=== PATIENT | male | born 1950 | race African-American/Black ===

== ENCOUNTER 2019-06-20 06:23 | Inpatient (IN) | payer OTHER ==
[~2019-06-20] VITALS: Ht 165.1 cm; Wt 48.6 kg
[2019-06-20] VITALS (38 sets, daily range): BP systolic 100–152; BP diastolic 70–94
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
[2019-06-20] MEDS ORDERED: GARLIC CHOLEST300 MG PO (06:36)
[2019-06-20 07:15] LABS: HEMATOCRIT 46.6 % (42.0-52.0); HEMOGLOBIN 15.2 gm/dL (14.0-18.0); MCH 30.7 pg (26.0-34.0); MCHC 32.6 g/dL (28.0-37.0); MCV 94.1 fL (80.0-100.0); RBC 4.95 mil/uL (4.50-6.00); RDW 15.8 % (10.5-14.5); WBC 8.8 thou/uL (4.0-11.0)
--- NOTE | 2019-06-20 07:15 | NUR ---
THERE IS NO NEED FOR A 1:1 SITTER AT THIS TIME FOR THE PT. THE RESTRAINTS ARE IN PLACE DUE TO THE PT PULLING AT THE IV.
[2019-06-20 07:34] LABS: BE(vivo) -4.9 mmol/L (-2 to +3); HCO3 17.7 mmol/L (22.0-26.0); PCO2 27.3 mmHg (35.0-45.0)
[2019-06-20 07:34] LABS: CALCIUM 9.1 mg/dL (8.5-10.1); CREATININE 3.9 mg/dL (0.7-1.3); POTASSIUM 4.1 mmol/L (3.5-5.1)
[2019-06-20 07:38] LABS: TSH 1.962 uIU/mL (0.358-3.740)
[2019-06-20 07:39] LABS: PHOSPHORUS 5.2 mg/dL (2.5-4.9); TOTAL BILIRUBIN 3.3 mg/dL (<0.1-1.0); TROPONIN-I 0.22 ng/mL (<0.06)
--- NOTE | 2019-06-20 09:39 | NUR ---
PER PT SON'S PHONE NUMBER: [phone]; JANETH FLYNN
--- NOTE | 2019-06-20 10:30 | NUR ---
WAS ABLE TO SPEAK WITH GEE, SON: [phone]
--- NOTE | 2019-06-20 12:51 | NUR ---
PATIENT ARRIVED TO ICU AT 1219. PATIENT TRANSFERRED INTO ICU BED AND SETTLED. PATIENT ALERT AND ORIENTED BUT CONFUSED. PATIENT RESTING AT THIS TIME. CARDIZEM GTT RECIEVED FROM PHARMACY AND STARTED AT 10 THEN INCREASED TO 15.
--- NOTE | 2019-06-20 15:45 | NUR ---
1520- Patient went to CT Scan with his RN from POD1. Covid was negative. He was then transfered to POD 2 because of the negative test. He was settled into the bed. 1530- Attempt was made at placing a catheter, 14f coude was used this time as it was reported that there had been several attempts. Small amount of bleeding was noted. Patient expressed the pain was too much for him to tolerate. 1545- Patient was able to void 150ml on his own, with ultra sound, post void, residual noted to be 50ml. 1604- All was noted to primary physician.
--- NOTE | 2019-06-20 16:25 | NUR ---
8701- nurse talked with patients spokes loss control representative and updated him on the phone. Nurse explained that visitors can not come at this time, he expressed he understood. Nurse explained that he may call when he wants to check up on patient. Nurse explained plan of care to him. He denied further needs at this time.
[2019-06-21] VITALS (38 sets, daily range): BP systolic 101–133; BP diastolic 68–86
[2019-06-21 05:58] LABS: HEMATOCRIT 42.9 % (42.0-52.0); HEMOGLOBIN 13.9 gm/dL (14.0-18.0); MCH 30.8 pg (26.0-34.0); MCHC 32.4 g/dL (28.0-37.0); MCV 94.8 fL (80.0-100.0); RBC 4.53 mil/uL (4.50-6.00); RDW 16.2 % (10.5-14.5); WBC 9.8 thou/uL (4.0-11.0)
[2019-06-21 06:21] LABS: ALBUMIN 3.5 g/dL (3.4-5.0); POTASSIUM 4.1 mmol/L (3.5-5.1); TOTAL BILIRUBIN 2.6 mg/dL (<0.1-1.0); TOTAL PROTEIN 7.3 g/dL (6.4-8.2); TROPONIN-I 0.21 ng/mL (<0.06)
[2019-06-21 06:24] LABS: CREATININE 2.9 mg/dL (0.7-1.3)
--- NOTE | 2019-06-21 08:58 | EKG ---
[facility] [place] [address] ELECTROCARDIOGRAM REPORT Name: WAYNE MARTINES Room #: 244-P ADM IN M.R.#: [id number] Admission: 06/20/19 Attend Phys: Marie Man MD Discharge: Date of : 46 Report #: [id number] THIS REPORT FOR: cc: FAM - Family physician unknown FAM - Family physician unknown Raulito Julian MD ~ THIS REPORT FOR: //name// [facility] ED Test Date: 2019-06-20 Test Time: 06:39:49 Pat Name: WAYNE MARTINES Department: Room: [facility] Gender: M Transportation Planning Engineer: CARROLL : 1950 Requested By: Yana Feliz Order Number: [id number] MD: Raulito Julian Measurements Intervals [place] Rate: 136 P: [place]: QRS: 13 QRSD: 91 T: QT: 351 QTc: 529 Interpretive Statements Atrial fibrillation Ventricular premature complex Probable left ventricular hypertrophy Nonspecific T abnormalities, lateral leads Prolonged QT interval No previous ECG available for comparison Electronically Signed On 06-21-2019 8:56:33 CDT by Raulito Julian [email or web address] <ELECTRONICALLY SIGNED> By: Raulito Julian MD 06/21/19 0856 0639 0639 Raulito Julian MD /ROLLY
--- NOTE | 2019-06-21 13:24 | 2DMMODE ---
[facility] [place] [address] 2 D/M-MODE ECHOCARDIOGRAM Name: WAYNE MARTINES Room #: 244-P ADM IN M.R.#: [id number] Admission: 06/20/19 Attend Phys: Marie Man MD Discharge: Date of : 46 Report #: [id number] THIS REPORT FOR: cc: FAM - Family physician unknown FAM - Family physician unknown Ciro Doss MD [facility] ~ APPROVED REPORT Study performed: 06/21/2019 11:46:47 EXAM: Comprehensive 2D, Doppler, and color-flow Echocardiogram Patient Location: ICU Room #: 244 Status: routine BSA: 1.53 HR: 86 bpm BP: 111/86 mmHg Rhythm: Atrial Fibrillation Other Information Study Quality: Good Indications Atrial Fibrillation 2D Dimensions RVDd: 34.81 mm IVSd: 10.07 (7-11mm) LVOT Diam: 18.56 (18-24mm) LVDd: 57.80 mm PWd: 9.92 (7-11mm) Ascending Ao: 26.90 (22-36mm) LVDs: 53.42 (25-40mm) Aortic Root: 30.60 mm IVC: 26.00 mm Volumes Left Atrial Volume (Systole) Single Plane 4CH: 81.98 mL Single Plane 2CH: 120.86 mL LA ESV Index: 69.00 mL/m2 Aortic Valve AoV Peak Brian.: 1.11 m/s AO Peak Gr.: 4.89 mmHg LVOT Max P.66 mmHg LVOT Max V: 0.96 m/s SERENE Vmax: 2.34 cm2 [facility] [address] [place] [address] 2 D/M-MODE ECHOCARDIOGRAM Name: WAYNE MARTINES JR Room #: 244-P ADM IN .R.#: [id number] Admission: 06/20/19 Attend Phys: Drew Park Discharge: Date of : 46 Report #: [id number] Pulmonary Valve PV Peak Brian.: 0.88 m/s PV Peak Gr.: 3.10 mmHg Tricuspid Valve TR Peak Brian.: 2.93 m/s TR Peak Gr.: 34.28 mmHg PA Pressure: 44.00 mmHg Left Ventricle Left ventricle is dilated. There is severe global hypokinesis of the left ventricle. There is normal left ventricular wall thickness. Left ventricular ejection fraction is severely decreased. Large protruding, mobile apical thrombus LVEF is 20%. This study is not technically sufficient to allow evaluation of the LV diastolic function due to atrial fibrillation. Right Ventricle The right ventricle is normal size. Right ventricle is hypokinetic. Atria Left atrium is dilated. Right atrium is dilated. Aortic Valve The aortic valve is sclerotic, trileaflet. Mild aortic regurgitation. There is no aortic valvular stenosis. Mitral Valve The mitral valve is normal in structure. Mild mitral regurgitation. No evidence of mitral valve stenosis. Tricuspid Valve The tricuspid valve is normal in structure. There is mild tricuspid regurgitation. Estimated PAP 45 mmHg. There is moderate pulmonary hypertension. Pulmonic Valve The pulmonary valve is normal in structure. Trace pulmonic regurgitation. Great Vessels The aortic root is normal in size. IVC is dilated and collapses <50% with inspiration. Pericardium There is no pericardial effusion. [facility] [address] [place] [address] 2 D/M-MODE ECHOCARDIOGRAM Name: WAYNE MARTINES JR Room #: 244-P [facility] IN [facility].#: [id number] Admission: 06/20/19 Attend Phys: Drew Park Discharge: Date of : 46 Report #: [id number] <Conclusion> Left ventricular ejection fraction is severely decreased. There is severe global hypokinesis of the left ventricle. LVEF is 20%. Large protruding, mobile apical LV thrombus Both atria are dilated. The aortic valve is sclerotic, trileaflet. Mild aortic regurgitation, no stenosis. The mitral valve is normal in structure. Mild mitral regurgitation. There is mild tricuspid regurgitation. Estimated pulmonary artery pressure of 45 mmHg. There is no pericardial effusion. <ELECTRONICALLY SIGNED> By: Ciro Doss MD, [facility] 06/21/19 1322 1322 1322 Ciro Doss MD, FACC /INF
[2019-06-21 16:28] LABS: URINE BILIRUBIN NEGATIVE (Negative); URINE BLOOD 2+ (Negative); URINE CLARITY CLEAR; URINE COLOR YELLOW; URINE GLUCOSE-RANDOM* NEGATIVE (Negative); URINE KETONES TRACE (Negative); URINE NITRITE-REFLEX NEGATIVE (Negative); URINE PROTEIN (DIPSTICK) NEGATIVE (Negative); URINE UROBILINOGEN 0.2 E.U./dl (0.2-1.0)
[2019-06-21 16:32] LABS: URINE LEUKOCYTES-REFLEX 1+ (Negative)
[2019-06-21 16:35] LABS: SQUAMOUS 0-3 Few /LPF (0-3); URINE RBC 3-10 Few /HPF (0-2)
[2019-06-21 16:36] LABS: BACTERIA-REFLEX 1-9 Few /HPF (None Seen); CASTS None Seen /LPF (None Seen); CRYSTALS None Seen /LPF (None Seen); URINE WBC-REFLEX 6-15 Few /HPF (0-5)
--- NOTE | 2019-06-21 18:27 | NUR ---
ASSUMED CARE OF PT AT NOON. PT MORE ALERT AND APPROPRIATE. DC RESTRAINTS. START PO MEDS PER CARDIOLOGY, TITRATE OFF CARDZIEM GTT. POOR APPETITE, REFUSED DINNER. SPOKE WITH SON GEE AND GAVE UPDATES. DR RUVALCABA SAID HE WOULD CALL SON AND TALK ABOUT ANTICOAGULATION. HEPARIN GTT STARTED FOR NOW DUE TO THROMBUS SHOWN ON ECHO.
[2019-06-22] VITALS (25 sets, daily range): BP systolic 118–149; BP diastolic 69–95
[2019-06-22 02:06] LABS: ALBUMIN 3.4 g/dL (3.4-5.0); CREATININE 2.5 mg/dL (0.7-1.3); PHOSPHORUS 3.6 mg/dL (2.5-4.9); POTASSIUM 4.3 mmol/L (3.5-5.1)
--- NOTE | 2019-06-22 04:37 | NUR ---
Assumed pt care at 1900. Patient is alert and oriented to self only. No sign of distress noted in pt. Denies any pain. Pt is stable. Assessment completed and documented. Fall precaution in place. Heparin drip in place. Continue to monitor patient. Scheduled meds administered to pt. Denies any further needs at this time.
--- NOTE | 2019-06-22 09:14 | NUR ---
ASSUMED CARE AT 0700, ASSESSMENT AND VITAL SIGNS COMPLETED PER ICU PROTOCOL. DR. MUIR ROUNDED THIS AM, NEW ORDERS RECEIVED. RN WILL CONTINUE TO FOLLOW POC.
--- NOTE | 2019-06-22 09:30 | NUR ---
cm visited with bedside nurse, reported family was going to bring by his cell phone, so he can talk on the phone. will cont following as needed for dc needs.
[2019-06-22 15:01] LABS: ABSOLUTE NEUTROPHILS 7.7 thou/uL (1.4-8.2); BASOPHILS 0.2 % (0.0-2.0); EOSINOPHILS 0.1 % (0.0-3.0); HEMATOCRIT 45.5 % (42.0-52.0); HEMOGLOBIN 14.4 gm/dL (14.0-18.0); LYMPHOCYTES 2.2 % (24.0-44.0); MCH 30.3 pg (26.0-34.0); MCHC 31.6 g/dL (28.0-37.0); MONOCYTES 5.9 % (1.0-8.0); PLATELET COUNT 121 thou/uL (150-400); POLYS 91.6 % (36.0-66.0); RBC 4.74 mil/uL (4.50-6.00); RDW 15.9 % (10.5-14.5); WBC 8.4 thou/uL (4.0-11.0)
[2019-06-23] VITALS (24 sets, daily range): BP systolic 117–160; BP diastolic 82–109
--- NOTE | 2019-06-23 04:52 | NUR ---
PT HAS SLEPT MOST OF THE NIGHT. RESPIRATIONS EVEN AND UNLABORED. PLACED ON 2L NC DURING THE NIGHT, HIS O2 SATS DROPPED TO 88-90% ON RA WHILE ASLEEP. AFEBRILE. VOIDS INDEPENDENTLY PER URINAL. HEPARIN GTT INFUSING PER PROTOCOL. AWAITING REPEAT APTT RESULT FROM MORNING LAB DRAW. AFIB ON TELE; HR <100 ALL NIGHT. PT HAS BEEN ABLE TO ANSWER MOST ORIENTATION QUESTIONS THIS SHIFT. HE DID REQUEST TO NOT BE TURNED DURING THE NIGHT. NO SKIN BREAKDOWN NOTED ON BUTTOCKS. PROGRESSING TOWARD POC GOALS. WILL CONTINUE TO MONITOR FURTHER.
[2019-06-23 08:54] LABS: CALCIUM 8.5 mg/dL (8.5-10.1); CREATININE 1.9 mg/dL (0.7-1.3)
[2019-06-23 08:58] LABS: POTASSIUM 4.8 mmol/L (3.5-5.1)
--- NOTE | 2019-06-23 15:27 | NUR ---
BRADLEY reviewed chart and spoke with nursing and attending physician. Pt is progressing towards goals for discharge. Pt on heparin gtt and will need to transition to PO anticoagulation. Therapy is working with pt. Recommendation made for pt to go to to post-acute care when medically stable. SW attempted to reach pt via his cell phone. No answer. BRADLEY spoke with pt's son, Sree, via phone to provide update and discuss post-acute placement. Options provided. Pt's son requests referral to be sent to [facility] for review. planner intern to fax referral. Discharge is anticipated in 1-2 days. BRADLEY is following to assist as needed with discharge planning.
--- NOTE | 2019-06-23 16:22 | NUR ---
FAXED REFERRAL TO [facility] RECEIVED CONFIRMATION AND LEFT MSG WITH NIKKI IN ADM. DP TO FOLLOW.
--- NOTE | 2019-06-23 17:59 | NUR ---
ASSUMED CARE OF PT AT SHIFT CHANGE. ASSESSMENTS CHARTED. MEDS GIVEN PER APR. PT A&OX4, FORGETFUL. MRI COMPLETE. PT WORKED WITH PT/OT, SAT IN CHAIR IN THE AFTERNOON. PT HYPERTENSIVE MOST OF SHIFT. CARDIOLOGY AWARE. HEPARIN DRIP CONTINUES, APTT 59.6, NO BOLUS, NO CHANGE TO RATE. WILL CONTINUE TO MONITOR AND FOLLOW POC.
--- NOTE | 2019-06-23 20:10 | NUR ---
PT IN BED SLEEPING. EASILY AROUSED. PT AWAKENED AND ASKED FOR COFFEE AND POP, BUT DECLINED SPRITE. PT CALM AND SAYING THANK YOU TO STAFF. O2 PER NC. HEPARIN JEFFERY CONTINUES. USING URINAL. SCDS ON.
--- NOTE | 2019-06-23 20:50 | NUR ---
PT RESISTIVE TO TAKING MEDICATIONS. CAROTID US COMPLETED. PT CONTINUES TO ASK FOR COFFEE AND WATER BUT FALLS ASLEEP PRIOR TO DRINKING. NEEDS ASSISTANCE WITH BEVERAGES.
--- NOTE | 2019-06-23 21:17 | NUR ---
PT STATED NO MORE PILLS NOTHING ELSE DOWN HIS THROAT. PT DID NOT TAKE ANTIBIOTIC OR IMDUR.
--- NOTE | 2019-06-23 21:43 | NUR ---
LAB NOT ABLE TO OBTAIN PERIPHERAL STICK. LAB OBTAINED FROM IV.
--- NOTE | 2019-06-23 21:53 | NUR ---
PROVIDER SPECIAL PROCEDURES TECH NOTIFIED OF PT REFUSING ANTIBIOTIC AND MEDICATIONS.
[2019-06-24] VITALS (8 sets, daily range): BP systolic 116–148; BP diastolic 81–119
--- NOTE | 2019-06-24 01:16 | NUR ---
PT NOW ON ROOM AIR 97% WHILE ASLEEP. PT REFUSING REPOSITIONING.
--- NOTE | 2019-06-24 05:10 | NUR ---
HEPARIN DRIP STOPPED PER PROTOCOL. APTT CRITICAL FROM LAB STICK.
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
--- NOTE | 2019-06-24 06:08 | NUR ---
PT REFUSING AM BP MEDS. PT INFORMED IF HIS BP GOT TO HIGH NURSE WOULD BE BACK TO ENCOURAGE MED COMPLIANCE. HE STATED THAT IS DIFFERENT.
[2019-06-24 06:09] LABS: CALCIUM 8.3 mg/dL (8.5-10.1); CREATININE 1.7 mg/dL (0.7-1.3); POTASSIUM 4.2 mmol/L (3.5-5.1)
--- NOTE | 2019-06-24 12:55 | NUR ---
SW reviewed chart and spoke with attending physician. Pt is not eating or drinking and refusing to take meds. Physician to discuss possible peg tube placement with pt's son. [facility] is able to accept pt when medically stable if SNF placement is needed. BRADLEY is follwoing to assist as needed with discharge planning.
--- NOTE | 2019-06-24 18:27 | NUR ---
RN ASSUMED CARE OF PATIENT AT 1220. PATIENT IN BED RESTLESS. PATIENT REFUSING MEDS AND CARE. PATIENT RESTING WITH EYES CLOSED. ORDERS RECVIEVED FOR A TRANSFER TO CCU. PATIENT NOT PROGRESSING TOWARDS GOALS AT THIS TIME. PATIENT REFUSING MEDICATION AND CARE.
--- NOTE | 2019-06-24 18:50 | NUR ---
ASSUMED ARE 1000. ALERT X2-WITH FORGETFULNESS AND HX OF DEMENTICIA. PT LIVES ALONE WITH SON CHECKING IN ON HIM. PT REFUSES MEDS AND BECOMES IRRITABLE WITH CARES. POOR NUTRIONAL INTAKE. ENCOURAGED MEALS AND ASSISTANCE PATIENT PULLS AWAY AND VOICES "STOP THAT, I WILL EAT WHEN I WANT TO". ST ON TELE. RA, DECLINES TO ALLOW ASSESMENT OF LUNGS FROM HIS BACK. USES A URINAL. NO BM NOTED. DECLINES PHYSICAL THERAPY. DECLINES REPOSTIONING. REPORTED OFF TO [facility] CONSULTANT KAY AT 1200.
--- NOTE | 2019-06-24 20:20 | NUR ---
Patient transferred to CCU at approximately 1999 via tele monitor. VSS. Report called to WILL Lowery. All personal belongings sent with patient. Patient was trasnferred via wheel chair. Heparin gtt infusing at 10.9units/kg/hour.
--- NOTE | 2019-06-25 03:53 | NUR ---
ASSESSMENTS CHARTED, MEDS GIVEN CHARTED. PATIENT ARRIVED FROM ICU AFTER SHIFT CHANGE. PATIENT ON HEPARIN DRIP D/T LG THROMBUS IN LEFT VENTRICAL. STILL NOT ON THERAPUTIC DOSE. SCHEDULED LAB DRAW AT O630. PATIENT ON ROOM AIR, RESTLESS IN BED, SELF DISCONNECTS TWO PERIFERAL IV'S. CURRENTLY HAVE REQUEST INTO ED FOR AN EJ. HAVE RECEIVED ORDER FROM Ariella BABCOCK NP FOR RESTRAINTS ONCE NEW ACCESS HAS BEEN INITIALTED. PATIENT ABLE TO ROLL FROM SIDE TO SIDE BY HIS SELF. FALL PRECAUTIONS IN PLACE DURING SHIFT.
[2019-06-25 05:08] VITALS: BP 156/97
--- NOTE | 2019-06-25 05:31 | NUR ---
EJ IN RIGHT JUGULAR WAS PLACED, RESTRAINTS APPLIED. PATIENT WORKED EJ OUT OF HIS NECK BY MOVING HIS HEAD AND SHOULDERS. ED NURSE IS HERE NOW TRYING TO PUT IN A NEW EJ.
[2019-06-25 07:04] LABS: CALCIUM 8.6 mg/dL (8.5-10.1); CREATININE 1.7 mg/dL (0.7-1.3); POTASSIUM 3.9 mmol/L (3.5-5.1)
[2019-06-25 07:30] VITALS: BP 126/84
--- NOTE | 2019-06-25 10:19 | NUR ---
PT ASLEEP, EASILY AROUSABLE, ASSESSED, ORIENTED TO SELF AND HOSPITAL, BUT NOT WHICH HOSPITAL, RESTRAINTS PER ORDERS, UNTIED Q 2 HRS PER PROTOCOL, ENCOURAGED AM FOODS, PT DOES NOT WANT TO EAT, WOULD ONLY TAKE 2/4 PILLS, CARDIAC QUANTITATIVE EQUITY HEAD AWARE PT REFUSING MEDS, "WILL LOOK AT HIS MEDS AND ORDER IV, IF NEEDED." SPOKE WITH PT'S SON, GEE, AND GAVE UPDATE ON HIS DAD. WILL MONITOR
[2019-06-25 11:55] VITALS: BP 133/87
--- NOTE | 2019-06-25 11:58 | NUR ---
SPOKE WITH DR RUVALCABA ABOUT PT'S HR RUNNING UP TO 120S. HE IS "FINE WITH THAT TRYING TO CONTROL HR WILL MESS UP HIS CHF." HE WILL LEAVE PT ON IV HEP SINCE PT IS REFUSING PO MEDS AT THIS TIME.
--- NOTE | 2019-06-25 14:29 | NUR ---
No dc indicated today. Poor po intake and pt still on iv meds per CV. The attending has talked with the pt's son regarding possible peg if po does not improve. [facility] updated and they are checking to see if they could accept over the weekend if he improves. Will follow.
[2019-06-25 15:40] VITALS: BP 149/81
[2019-06-25 20:15] VITALS: BP 108/55
[2019-06-25 21:13] VITALS: BP 138/105
[2019-06-26 00:45] VITALS: BP 140/86
--- NOTE | 2019-06-26 03:32 | NUR ---
SLEPT PART OF SHIFT. MOVES SELF AROUND IN BED. SOFT RESTRAINTS REMAIN IN USE FOR LINE SAFETY AND FREE OF INJURY. TRYS TO GET OUT OF BED AT TIMES. WORKING ON GOALS AND PLAN OF CARE FOR NOC. MALE CATH APPLIED FOR NOC DUE TO INCONTINECE. NOT PROGRESSING TOWARDS DISCHARGE GOALS AT THIS TIME. REORIENT NEEDED. CONTINUE TO ASSES CLOSELY. MONITOR RHYTHM PER TELEMETRY, AFIB FLUCUATING FROM 90-130'S AT TIMES. CARDIZEM GTT TO TITRATION NEEDED.
[2019-06-26 03:46] VITALS: BP 138/93
[2019-06-26 04:58] LABS: CALCIUM 8.9 mg/dL (8.5-10.1); CREATININE 1.5 mg/dL (0.7-1.3); POTASSIUM 3.7 mmol/L (3.5-5.1)
[2019-06-26 08:00] VITALS: BP 111/77
[2019-06-26 12:20] VITALS: BP 118/70
--- NOTE | 2019-06-26 12:23 | NUR ---
ASSUMED CARE 0700. ALERT TO SELF, SLEEPY, AWAKENS EASILY. NO APPARENT PAIN, CONITNUES ON CARDIAC DRIP AND HEPARIN DRIP. DR RODAS SPOKE WITH SON TO UPDATE ON PT'S STATUS.PT CODE STATUS CHNAGED TO NO CODE. HOSPICE AND COMFORT ORDERS INPLACE. TEMP UNABLE TO OBTAIN. REFUSING SCHEDULED MEDS. ST MADE DIET CHANGES DECLINES TO EAT MEALS. RESTRAINT ORDER RENEWED WITH DR RODAS AT 1230PM. FREAQANT ROUNDED C STAFF ANTICIPATING NEEDS. CLOSE TO NURSES STATION. AFIB ON TELE 100'S-130'S. CONTINUET TO MONITOR
[2019-06-26 16:10] VITALS: BP 100/62; BP 166/81
--- NOTE | 2019-06-26 18:01 | NUR ---
ASSUMED CARE 0700. PATIENT ALERT TO SELF AND PLACE. SLEEPING AND AROUSES EASILY. CODE STATUS CHANGED TO NO CODE. COMFORT CARE AND HOSPICE ORDERS IN AND CM NOTIFIED OF CHANGE IN STATUS. PT DECLINED MORNING MEDICATIONS. PT AROUSED AFTER 1400 AND WILLING TO TAKE PO MEDICATIONS, ONLY ATE DESERT OFF NOON MEAL, AND DRANK 120% OF SUPPLEMENT PLUS 240CC OF WATER. INCONTINENT OF URINE. PT SPOKE WITH HIS SON 2X. RESTAINTS REMOVED. PATIENT COMPLAINT WITH CARES. CALL LIGHT IN REACH. FALL PRECATIONS IN PLACE.
[2019-06-26 19:45] VITALS: BP 102/68
[2019-06-27 03:26] LABS: ABSOLUTE NEUTROPHILS 7.1 thou/uL (1.4-8.2); BASOPHILS 0.2 % (0.0-2.0); EOSINOPHILS 0.8 % (0.0-3.0); HEMATOCRIT 41.1 % (42.0-52.0); HEMOGLOBIN 13.3 gm/dL (14.0-18.0); LYMPHOCYTES 4.8 % (24.0-44.0); MCH 30.9 pg (26.0-34.0); MCHC 32.3 g/dL (28.0-37.0); MCV 95.8 fL (80.0-100.0); MONOCYTES 6.9 % (1.0-8.0); PLATELET COUNT 185 thou/uL (150-400); POLYS 87.3 % (36.0-66.0); RBC 4.29 mil/uL (4.50-6.00); RDW 16.6 % (10.5-14.5); WBC 8.2 thou/uL (4.0-11.0)
[2019-06-27 03:41] LABS: ALBUMIN 2.8 g/dL (3.4-5.0); CALCIUM 8.5 mg/dL (8.5-10.1); CREATININE 1.8 mg/dL (0.7-1.3); MAGNESIUM 2.5 mg/dL (1.8-2.4); PHOSPHORUS 2.4 mg/dL (2.5-4.9); POTASSIUM 3.5 mmol/L (3.5-5.1); TOTAL BILIRUBIN 1.9 mg/dL (<0.1-1.0); TOTAL PROTEIN 6.5 g/dL (6.4-8.2)
[2019-06-27 04:45] VITALS: BP 104/68
--- NOTE | 2019-06-27 05:03 | NUR ---
ASSESSMENTS CHARTED, MEDS GIVEN CHARTED. PATIENT WAS CHANGED TO DNR, HOSPICE CARE DURING DAY SHIFT. PATIENT STILL ON CARDIZEM AND HEPARIN DRIPS AT START OF SHIFT. PATIENT PULLED OUT IV DURING EARLY HOURS OF DAY. SPOKE WITH Kaitlynn BABCOCK NP WHO SAID TO HOLD RESTARTING IV AND DRIPS UNTIL SHE REVIEWED ORDERS VS. TREATMENT. DENIED PAIN. FALL PRECAUTIONS IN PLACE DURING SHIFT.
[2019-06-27 08:10] VITALS: BP 112/71
[2019-06-27 11:20] VITALS: BP 115/77
[2019-06-27 16:15] VITALS: BP 114/81
--- NOTE | 2019-06-27 20:20 | NUR ---
ASSUMED CARE 0700. ALERT TO SELF. REQUIRES [id number], TOOK AM MED REFUSED 1400 AND 1700 MEDS. CONTINUALLY PULLS OFF TELE LEADS. 200 VOID, 480 FLUIDS INCLUDING ONE SUPPLEMENT. STAFF ANTICIPATE NEEDS. CALL LIGHT IN REACH. BED ALARM SET. LIKELY DC TO [facility] WITH COMFORT/HOSPICE CARE.
[2019-06-27 20:46] VITALS: BP 110/75
[2019-06-27 23:40] VITALS: BP 135/89
--- NOTE | 2019-06-28 00:36 | NUR ---
ASSESSMENT CHARTED, MEDS WERE REFUSED DURING SHIFT. PATIENT RESTING IN BED, REFUSING TO TAKE ANY ORAL MEDS, REFUSING TO KEEP TELEMETRY ELECTRODES ON DURING SHIFT. PATIENT DOES NOT WANT TO BE TOUCHED OR BOTHERED BY STAFF. MAGY BOOTH NOTIFIED, PATIENT DOWNGRADED TO MED/SURG AND MOVED TO ROOM 455. REPORT WAS GIVEN TO YAMILKA, PATIENTS BELONGINGS WERE COLLECTED AND MOVED TO 4W.
--- NOTE | 2019-06-28 05:58 | NUR ---
Pt transferred to unit approx 2330 from . Alert to self only, denied any needs on assessment. VSS. Pt's impulsive and attempts to get OOB w/o calling for help several times, fall precautions in place. Pt's incontinent of bladder this shift, last BM not known. PIV on LFA still in place. Resting quietly at this time, will continue to monitor pt.
--- NOTE | 2019-06-28 15:42 | NUR ---
ASSUMED CARE AT 0700. PT ALERT. WONT ANSWER OTHER QUESTIONS. WHEN ASKED IF HE WAS GOING TO TAKE HIS MEDICATIONS, HE SAID HE WOULD LET ME KNOW. VSSA/RA-1L O2 FOR COMFORT. C/O SOA AT TIMES, NC PLACED AND RT NOTIFIED. SATS NORMAL. NO INCREASED WOB NOTED. PT NO C/O PAIN. NOT EATING MUCH. THIS AFTERNOON, PT PULLED OUT HIS PIV. WILL CONTINUE TO MONITOR
--- NOTE | 2019-06-28 15:51 | NUR ---
CM FOLLOWED UP WITH PT'S SON THIS AM AND DISCUSSED SKILLED VS HOSPICE/PALLIATIVE AND WHAT THESE TWO OPTIONS LOOK LIKE IN THE FACILITY SETTING. SON INDICATED HE WOULD PREFER TO SEE IF DAD COULD PARTICIPATE IN SOME SKILLED REHAB UPON DC. CM NOTIFIED HOSPITALIST. [facility] ACCEPT PROPERTY MAINTENANCE SUPERVISOR. CM SPOKE WITH SON ABOUT [employer] RACHING OUT TO PT AND SON ABOUT POSSIBLE SECONDARY MEDICAID TERELL. CM TO FOLLOW INDICATED WITH DC PLANNING.
[2019-06-28 19:25] VITALS: BP 145/130
[2019-06-28 21:32] VITALS: BP 135/115
--- NOTE | 2019-06-29 05:32 | NUR ---
Assumed pt care at 1900. Pt A/OX1,non-compliant with cares and impulsive. Pt moved to room 460 for closer observation at HS. Refused taking HS meds,notified BP is high and pt stated "I don't want them" attempted again with no luck. Denies pain on assessment. Pt getting up frequesntly w/o calling for help,up with unsteady gait. Safety reinforced but doesn't comply. Fall precautions in place, and pt assisted to the bathroom as needed with assist of 1. Prefers to stay naked, dressed several times but keeps taking gown off as well as covers,curtains pulled for privacy. Resting quietly at this time,will continue to monitor pt.
[2019-06-29 06:37] VITALS: BP 168/61
[2019-06-29] MEDS ORDERED: ISORDIL10 MG PO (11:38)
[2019-06-29] MEDS ORDERED: CARVEDILOL12.5 MG PO (11:38)
[2019-06-29] MEDS ORDERED: PEPCID20 MG PO (11:39)
--- NOTE | 2019-06-29 15:03 | NUR ---
PT DISCHARGING TODAY TO [facility] FAXED DC ORDERS/SUMMARY TO FACILITY SPOKE WITH NIKKI IN ADM SHE RECEIVED ORDERS AND ARRANGED TRANSPORT BY [facility] FOR 1600 TODAY NOTIFIED PT'S SON (GEE) OF DC AND TIME OF TRANSPORT UNIT NOTIFIED AND CHART COPY PER US RN TO CALL REPORT TO [phone].
[2019-06-29 15:04] VITALS: BP 149/102
--- NOTE | 2019-06-29 15:38 | NUR ---
assumed pt care this am, pt isvery confused and impulsive, no IV present since pt has been removing the IV a short while after beibng placed. Would refused oral meds though am meds were given but refused pm medication. Pt is incontinent of both bowel and bladder. Appetite is poor, small frequent feedings and hydration promoted. DC orders given, report given to Nadia from [facility], POC followed with no signs orverbalizations of distress have been noted. Awaiting fish bait picker at 4 pm.
--- NOTE | 2019-06-29 16:27 | NUR ---
CARE TEAM INDICATED THAT PT IS MEDICALLY STABLE TO DC TO [facility] SKILLED THIS DAY. CHART COPY ORDERED. ORDERS FAXED. TRANSPORT ARRANGED FOR 1600. COVID SCREENING AND [id number] SENT TO FACILITY VIA FAX. PT AND SON ARE AWARE AND AGREEABLE. NO OTHER CM INTERVENTION INDICATED. CASE CLOSED.
== END 2019-06-29 17:30 | DRG 682 ==
LOC: ER 06:23 → ICU 11:24 → 2N 06-24 20:05 → 4W 06-28 01:04
PROVIDERS: Hospitalist; Internal Medicine; Nurse Practitioner; Student in an Organized Health Care Education/Training Program; ADMIT Hospitalist
DX: N17.0 Acute kidney failure with tubular necrosis (principal); G93.41 Metabolic encephalopathy; I50.23 Acute on chronic systolic (congestive) heart failure; E43 Unspecified severe protein-calorie malnutrition; I13.0 Hypertensive heart and chronic kidney disease with heart failure and stage 1 through stage 4 chronic kidney disease, or unspecified chronic kidney disease; I24.0 Acute coronary thrombosis not resulting in myocardial infarction; E87.0 Hyperosmolality and hypernatremia; I16.1 Hypertensive emergency; E87.2 Acidosis; I42.9 Cardiomyopathy, unspecified; Z68.1 Body mass index [BMI] 19.9 or less, adult; N18.3 Chronic kidney disease, stage 3 (moderate); E86.0 Dehydration; E87.8 Other disorders of electrolyte and fluid balance, not elsewhere classified; Z66 Do not resuscitate; Z51.5 Encounter for palliative care; I48.91 Unspecified atrial fibrillation; I50.9 Heart failure, unspecified; F01.50 Vascular dementia, unspecified severity, without behavioral disturbance, psychotic disturbance, mood disturbance, and anxiety; E80.7 Disorder of bilirubin metabolism, unspecified; D69.6 Thrombocytopenia, unspecified; Z87.891 Personal history of nicotine dependence; Z79.899 Other long term (current) drug therapy; Z03.818 Encounter for observation for suspected exposure to other biological agents ruled out
CPT/HCPCS: 10047; 10078; 10081

== ENCOUNTER 2019-07-01 14:54 | Emergency (ER) | payer OTHER ==
[~2019-07-01] VITALS: Ht 170.2 cm; Wt 54.0 kg
[~2019-07-01 14:54] MED LIST: CARVEDILOL12.5 MG PO; GARLIC CHOLEST300 MG PO; ISORDIL10 MG PO; PEPCID20 MG PO
[2019-07-01] MEDS ORDERED: LOVENOX40 MG/0.4 SUBQ (15:00)
[2019-07-01] MEDS ORDERED: ENOXAPARIN60 MG/0.6 SUBQ (15:01)
[2019-07-01 15:43] LABS: ABSOLUTE NEUTROPHILS 9.3 thou/uL (1.4-8.2); BASOPHILS 0.2 % (0.0-2.0); EOSINOPHILS 0.1 % (0.0-3.0); HEMATOCRIT 43.4 % (42.0-52.0); HEMOGLOBIN 13.7 gm/dL (14.0-18.0); LYMPHOCYTES 5.6 % (24.0-44.0); MCH 30.6 pg (26.0-34.0); MCHC 31.6 g/dL (28.0-37.0); MONOCYTES 5.9 % (1.0-8.0); PLATELET COUNT 239 thou/uL (150-400); POLYS 88.2 % (36.0-66.0); RBC 4.47 mil/uL (4.50-6.00); RDW 17.8 % (10.5-14.5); WBC 10.6 thou/uL (4.0-11.0)
[2019-07-01 15:48] LABS: CALCIUM 9.1 mg/dL (8.5-10.1); CREATININE 2.2 mg/dL (0.7-1.3); POTASSIUM 4.2 mmol/L (3.5-5.1)
[2019-07-01 15:58] LABS: ALBUMIN 3.5 g/dL (3.4-5.0); MAGNESIUM 2.5 mg/dL (1.8-2.4); TOTAL BILIRUBIN 1.6 mg/dL (<0.1-1.0); TOTAL PROTEIN 7.8 g/dL (6.4-8.2); TROPONIN-I 0.29 ng/mL (<0.06)
[2019-07-01 16:08] LABS: INR 1.2; PROTIME 12.6 Seconds (9.3-11.4)
[2019-07-01 16:17] LABS: BE(vivo) -1.1 mmol/L (-2 to +3); HCO3 22.7 mmol/L (22.0-26.0); PCO2 35.2 mmHg (35.0-45.0); pH 7.427 (7.360-7.450); sO2 98.8 % (92.0-98.0)
[2019-07-01 18:56] VITALS: BP 131/97
--- NOTE | 2019-07-02 08:21 | EKG ---
[facility] [place] [address] ELECTROCARDIOGRAM REPORT Name: WAYNE MARTINES Room #: DEP [facility]#: [id number] Admission: 07/01/19 Attend Phys: Discharge: 07/01/19 Date of : 46 Report #: [id number] THIS REPORT FOR: cc: Kd Buck MD, Srinath MD Couchonnal, Luis F. MD ~ THIS REPORT FOR: //name// [facility] ED Test Date: 2019-07-01 Test Time: 15:15:37 Pat Name: WAYNE MARTINES Department: Room: Gender: Double Back Operator: : 1950 Requested By: Grzegorz Tang Order Number: [id number] MD: Raulito Julian Measurements Intervals [place] Rate: 89 P: MA: QRS: 16 QRSD: 97 T: 214 QT: 331 QTc: 403 Interpretive Statements Atrial fibrillation LVH with secondary repolarization abnormality Compared to ECG 06/20/2019 06:39:49 Electronically Signed On 07-02-2019 8:19:39 CDT by Raulito Julian [email or web address] <ELECTRONICALLY SIGNED> By: Raulito Julian MD 07/02/19 0819 151 Raulito Julian MD /ROLLY
== END 2019-07-01 18:59 | disposition home or self-care (01) ==
LOC: ER 14:54
PROVIDERS: Emergency Medicine
DX: I21.9 Acute myocardial infarction, unspecified (principal); I12.9 Hypertensive chronic kidney disease with stage 1 through stage 4 chronic kidney disease, or unspecified chronic kidney disease; N18.9 Chronic kidney disease, unspecified; F03.90 Unspecified dementia, unspecified severity, without behavioral disturbance, psychotic disturbance, mood disturbance, and anxiety; E46 Unspecified protein-calorie malnutrition; R06.3 Periodic breathing; I48.20 Chronic atrial fibrillation, unspecified; K21.9 Gastro-esophageal reflux disease without esophagitis; Z79.899 Other long term (current) drug therapy; Z98.890 Other specified postprocedural states